=== PATIENT | female | born 1975 | race Caucasian/White ===

== ENCOUNTER 2019-07-26 23:46 | Emergency (ER) | payer OTHER ==
[2019-07-26 23:52] VITALS: TEMP 98.2
--- NOTE | 2019-07-27 01:22 | US ---
EXAMINATION TYPE: US venous doppler duplex LE LT DATE OF EXAM: 07/27/2019 1:12 AM COMPARISON: NONE CLINICAL HISTORY: R/O DVT. R/O DVT per order. Pain posterior left knee x couple months. Hx DVT. Patie nt on coumadin. Smoker. Hx vein stripping. SIDE PERFORMED: Left TECHNIQUE: The lower extremity deep venous system is examined utilizing real time linear array sonog nieves with graded compression, doppler sonography and color-flow sonography. VESSELS IMAGED: External Iliac Vein (EIV) Common Femoral Vein Deep Femoral Vein Femoral Vein Popliteal Vein Small Saphenous Vein * Proximal Calf Veins (* superficial vessels) Left Leg: Hypoechoic area seen medial left knee measurin.4 x 2.7 x 1.6 cm. Superficial vessels appear dilated posterior to the knee. Additionally, there appear to be complex tortuous areas that d o not compress or show color flow seen anterior to the popliteal vessels. Possible superficial thromb osis. No evidence of DVT in veins imaged at this time in the left leg. IMPRESSION: There are some thrombosed superficial varicose veins in the calf. There is a popliteal c yst. No evidence of deep venous thrombosis.
--- NOTE | 2019-07-27 01:47 | ED ---
Extremity Problem HPI - General Chief complaint: Extremity Problem,Nontraumatic Stated complaint: knee swelling/bruising Time Seen by Provider: 07/26/19 23:58 Source: patient Mode of arrival: ambulatory Limitations: no limitations - History of Present Illness Initial comments: This patient is a 43-year-old woman with history of previous DVT who presents to be evaluated for a swelling behind her left knee. The patient states that she has previous history of DVT. She is maintained on Coumadin and states that she did have her level checked last week and it was 2.4. The patient states that she is on her feet all day and has noticed that there is swelling behind her left knee. Coworker told her that it is probably a cyst but may also be a clot so she felt she should be evaluated here. The patient denies other associated symptoms. She does not have any pain in the muscle. She does not have any fevers, cough, dyspnea, chest pain, hemoptysis, or other symptoms. She has not had any prolonged travel or bed rest. No recent injury. MD Complaint: extremity swelling -: days(s) Location: left History of Same: Yes Quality: dull Consistency: constant Improves with: nothing Worsens with: nothing Associated Symptoms: denies other symptoms - Related Data Allergies Allergy/AdvReac Type Severity Reaction Status Date / Time No Known Allergies Allergy Verified 07/26/19 23:52 Review of Systems ROS Statement: Those systems with pertinent positive or pertinent negative responses have been documented in the HPI. ROS Other: All systems not noted in ROS Statement are negative. Constitutional: Denies: fever, chills, weakness Respiratory: Denies: cough, dyspnea Cardiovascular: Denies: chest pain, palpitations, edema, syncope Gastrointestinal: Denies: abdominal pain Skin: Denies: rash Neurological: Denies: headache, weakness Past Medical History Past Medical History: Deep Vein Thrombosis (DVT) History of Any Multi-Drug Resistant Organisms: None Reported Past Surgical History: Tubal Ligation Additional Past Surgical History / Comment(s): vein stripping Past Psychological History: No Psychological Hx Reported Smoking Status: Current every day smoker Past Alcohol Use History: None Reported Past Drug Use History: None Reported General Exam Limitations: no limitations General appearance: alert, in no apparent distress Head exam: Present: atraumatic, normocephalic Respiratory exam: Present: normal lung sounds bilaterally. Absent: respiratory distress, wheezes, rales, rhonchi, stridor Cardiovascular Exam: Present: regular rate, normal rhythm, normal heart sounds. Absent: systolic murmur, diastolic murmur, rubs, gallop GI/Abdominal exam: Present: soft. Absent: tenderness Extremities exam: Present: normal inspection, normal capillary refill, other (In the left popliteal fossa, there does appear to be Bakers cyst. In addition the patient has a number of varicose veins that are palpable in the popliteal fossa on the left. No Homans sign. No palpable cords.). Absent: pedal edema, calf tenderness Neurological exam: Present: alert Skin exam: Present: warm, dry, intact, normal color. Absent: rash Course Vital Signs 07/26/19 07/27/19 23:48 02:00 Temperature 98.2 F Pulse Rate 59 L 68 Respiratory 20 16 Rate Blood Pressure 131/82 103/73 O2 Sat by Pulse 100 99 Oximetry Medical Decision Making - Medical Decision Making Patient's 43-year-old woman presenting to have swelling behind her left knee evaluated. The patient does have Bakers cyst consistent with the clinical exam. In addition there is some superficial thousand by this of the varicose veins of the left leg. There is no evident DVT. Given the patient's previous history we discussed the importance of maintaining her Coumadin where it is and having close follow-up. Discussed appropriate thrombophlebitis care as well as follow- up and the return parameters. Please note that the patient did refuse lab work here. Disposition Clinical Impression: Thrombophlebitis, Popliteal cyst Disposition: HOME SELF-CARE Condition: Good Instructions (If sedation given, give patient instructions): Superficial Thrombophlebitis (ED), Bakers Cyst (ED) Is patient prescribed a controlled substance at d/c from ED?: No Referrals: Melly Le DO [Primary Care Provider] - 1-2 days
[2019-07-27 02:05] VITALS: BP 103/73; PULSE 68; RESP 16
== END 2019-07-27 02:05 | disposition home or self-care (01) ==
LOC: EC 23:46
DX: M71.22 Synovial cyst of popliteal space [Baker], left knee (principal); I80.02 Phlebitis and thrombophlebitis of superficial vessels of left lower extremity; I83.92 Asymptomatic varicose veins of left lower extremity; F17.200 Nicotine dependence, unspecified, uncomplicated; Z79.01 Long term (current) use of anticoagulants; Z86.718 Personal history of other venous thrombosis and embolism; Z98.890 Other specified postprocedural states
CPT/HCPCS: 99283